=== PATIENT | male | born 1950 | race Caucasian/White ===

== ENCOUNTER → 2019-07-26 | Outpatient (CLI) | payer MEDICARE ==
[2019-07-26 15:32] LABS: BILIRUBIN,DIRECT 0.3 mg/dL (0.0-0.5)
== END ==
LOC: LAB 14:53
PROVIDERS: ATTEND Podiatrist Foot & Ankle Surgery
DX: B35.1 Tinea unguium (principal)
CPT/HCPCS: 36415; 80076